=== PATIENT | male | born 1975 | race Caucasian/White ===

== ENCOUNTER 2023-12-27 09:37 | Emergency (ER) | payer OTHER, SELFPAY ==
[2023-12-27 09:41] VITALS: BP 132/98; PULSE 84; RESP 16; TEMP 36.7; O2SAT 99; BMI 35.8
--- NOTE | 2023-12-27 10:04 | CRLHL7_ITS ---
For Patients: As a result of the Century Cures Act, medical imaging exams and procedure reports are released immediately into your electronic medical record. You may view this report before your referring provider. If you have questions, please contact your health care provider. INDICATION: Right upper quadrant abdomen pain TECHNIQUE: Ultrasound abdomen limited. Sonographic images of the right upper quadrant were obtained using lobo-scale and color Doppler images. COMPARISON: None FINDINGS: Liver: Diffusely increased in echogenicity without focal lesion. Craniocaudal length of 20.2 centimeters. Gallbladder: No stones or sludge. Normal wall thickness. No pericholecystic fluid. Common bile duct: 4 mm. Pancreas: Partially obscured by bowel gas without discrete lesion. Right kidney: Normal in size. Normal echotexture and cortex. No masses, stones, or hydronephrosis. Vasculature: Proximal abdominal aorta and IVC are normal. IMPRESSION: 1. No evidence of cholelithiasis or cholecystitis. 2. Moderate to severe hepatic steatosis. Dictated by Robel Latif MD @ 12/27/2023 11:31:30 AM (Electronically Signed)
[2023-12-27 10:12] LABS: Lactate* 2.1 mmol/L (0.5-1.9)
[2023-12-27] MEDS: 0.9 % SODIUM CHLORIDE 1000 ml 1,000 ML IV (10:14)
[2023-12-27] MEDS: ONDANSETRON 2 MG/ML inj 4 MG IVP (10:14)
[2023-12-27 10:15] LABS: Basophils Absolute Auto 0.03 K/uL (0.00-0.30); Basophils Percent Auto 0.4 % (0.0-3.0); Eosinophils Absolute Auto 0.05 K/uL (0.00-0.50); Eosinophils Percent Auto 0.6 % (0.0-7.0); Hematocrit 48.2 % (37.0-53.0); Hemoglobin* 16.5 gm/dL (13.5-17.5); Immature Granulocytes Abs Auto 0.01 K/uL (0.00-0.30); Immature Granulocytes Pct Auto 0.1 %; Lymphocytes Absolute Auto 1.85 K/uL (0.90-2.90); Lymphocytes Percent Auto 22.8 % (20-44); Mean Corpuscular HGB Conc 34 gm/dL (32-36); Mean Corpuscular Hemoglobin 29 pg (26-34); Mean Corpuscular Volume 85 fL (80-100); Neutrophils Absolute Auto 5.77 K/uL (1.7-7.0); Neutrophils Percent Auto 71.1 % (42.0-72.0); Platelet Count* 272 K/uL (140-440); RDW Coefficient of Variation % 12.1 % (11.5-15.5); Red Blood Count 5.66 m/uL (4.30-5.90); White Blood Count* 8.12 K/uL (4.50-11.00)
[2023-12-27 10:19] LABS: Slide Review Reflex No
--- NOTE | 2023-12-27 10:20 | ED_ITS ---
HPI - General Adult General Chief complaint: Abdominal Pain Stated complaint: back & abdominal pain, vomiting Time Seen by Provider: 12/27/23 09:38 Source: patient Mode of arrival: ambulatory Limitations: no limitations History of Present Illness HPI narrative: 48-year-old male presenting today with back and abdominal pain. Patient states that the back pain started about 4 days ago located in the right mid back. He states that when he gets really bad he starts dry heaving and then he feels the pain in the right upper quadrant. He states that eating makes the pain worse, he states that he will eat and then a short time later the pain starts again. Certain positions can make the pain better. He denies any fevers or chills. He does feel nauseated and again does vomit when the pain becomes terrible. He denies any lower abdominal discomfort. He denies any increased urinary frequency, urgency or dysuria. He denies any blood in his urine or stools. He denies any constipation or diarrhea. No blood in his vomitus. Patient denies any intra-abdominal surgery in the past. He is on hydrochlorothiazide for hypertension. Patient states he has had similar back pain in the past, about 2 years ago he was told he had a muscle spasm and was given Flexeril. He has been taking his old Flexeril with this round of discomfort and has not been helping. The pain does not radiate into the lower abdomen or into his groin. Related Data Home Medications ?Medication ?Instructions ?Recorded ?Confirmed cyclobenzaprine 10 mg tablet 10 mg PO HS 12/27/23 12/27/23 hydrochlorothiazide 12.5 mg tablet 12.5 mg PO DAILY 12/27/23 12/27/23 Previous Rx's ?Medication ?Instructions ?Recorded ketorolac 10 mg tablet 10 mg PO TID 5 days #15 tabs 12/27/23 Allergies Allergy/AdvReac Type Severity Reaction Status Date / Time No Known Drug Allergies Allergy Verified 12/27/23 09:49 Review of Systems Status of ROS: Reports: 10 or more systems reviewed and unremarkable except as noted in History and below Exam Narrative: Exam Narrative: Overweight well-developed patient in mild distress. Alert and oriented. Answers questions appropriately. Mood and affect are appropriate. Thoughts are goal oriented and rational. No tangential or magical thinking noted. Patient speaks in full sentences without needing to catch his breath. He does not appear ill or toxic. HEENT: Normocephalic atraumatic. Pupils are equally round reactive to light. Extraocular muscles are intact. Conjunctivae are moist without any icterus noted. Moist mucous membranes. Posterior pharynx is normal. Neck is soft without any lymphadenopathy or thyromegaly. No masses are appreciated. Cardiovascular: Heart is regular rate and rhythm S1 and S2 are present without any murmurs. Lungs: Clear to auscultation bilaterally no wheezes rhonchi or rales are appreciated. Patient takes deep breaths without any discomfort. Abdomen: Soft and nontender nondistended with normal bowel sounds. No guarding or rebound. No masses or organomegaly appreciated. Negative Ashley sign. Does not have CVA tenderness on either the left or the right. Very mild epigastric discomfort. Extremities: Bilateral lower extremities are without edema. Normal DP and PT pulses. Skin: Well perfused without any obvious rashes. Const: Vital Signs, click to edit/add: Vital Signs - 24 hr 12/27/23 09:41 Temperature 98.0 F Pulse Rate [Pulse Oximeter] 84 Respiratory Rate 16 Blood Pressure [Le ft Upper Arm] 132/98 H Pulse Oximetry 99 Oxygen Delivery Me thod Room Air Course Course ED Course: Differential diagnosis at this times includes cholelithiasis, pancreatitis, muscle spasm, nephrolithiasis, peptic ulcer disease. Labs were reassuring. Lactate was slightly elevated 2.1. Normal CBC, normal lipase, normal CRP, unremarkable LFTs, normal chemistries. Right upper quadrant ultrasound was done, this does not show any pathology, no cholelithiasis or cholecystitis. Abdominal CT without contrast was done to look for nephrolithiasis-abdominal CT was entirely normal. Patient did receive a L of normal saline while he was here. Zofran. Vital Signs Vital signs: Initial Vital Signs Temperature 98.0 F 12/27/23 09:41 Temperature Source Temporal Artery Scan 12/27/23 09:41 Pulse Rate 84 12/27/23 09:41 Respiratory Rate 16 12/27/23 09:41 Blood Pressure 132/98 H 12/27/23 09:41 Blood Pressure Mean 109 H 12/27/23 09:41 Blood Pressure Position Sitting 12/27/23 09:41 Pulse Oximetry 99 12/27/23 09:41 Oxygen Delivery Method Room Air 12/27/23 09:41 Vital Signs Temperature 98.0 F 12/27/23 09:41 Pulse Rate 84 12/27/23 09:41 Respiratory Rate 16 12/27/23 09:41 Blood Pressure 132/98 H 12/27/23 09:41 Pulse Oximetry 99 12/27/23 09:41 Oxygen Delivery Method Room Air 12/27/23 09:41 Temperature 98.0 F 12/27/23 09:41 Pulse Rate 84 12/27/23 09:41 Respiratory Rate 16 12/27/23 09:41 Blood Pressure 132/98 H 12/27/23 09:41 Pulse Oximetry 99 12/27/23 09:41 Oxygen Delivery Method Room Air 12/27/23 09:41 Medications Administered Medications: Discontinued Medications Generic Name Dose Route Start Last Admin Trade Name Freq PRN Reason Stop Dose Admin Sodium Chloride 1,000 mls @ 1,000 mls/hr 12/27/23 10:15 12/27/23 10:14 0.9 % Sodium Chloride 1000 Ml IV 12/27/23 11:14 1,000 mls/hr .Q1H MARIELLA Administration Ondansetron HCl 4 mg 12/27/23 10:04 12/27/23 10:14 Ondansetron 2 Mg/Ml Inj IVP 12/27/23 10:05 4 mg ONCE ONE Administration Medical Decision Making MDM Narrative Medical decision making narrative: 48-year-old male with back pain that sometimes radiates to the front of the abdomen. His workup was entirely unremarkable. This does likely represent muscle spasm or perhaps gastritis or peptic ulcer disease. He can certainly start taking a daily omeprazole. We will send him home with Toradol to take for his back pain. He does not want Flexeril it makes him too sleepy. Recommend he follow up with primary care provider as needed. Recommend physical therapy. Lab Data Lab results reviewed: Yes I reviewed the patient's lab results Labs: Lab Results 12/27/23 12/27/23 Range/Units 09:49 11:00 WBC 8.12 (4.50-11.00) K/uL RBC 5.66 (4.30-5.90) m/uL Hgb 16.5 (13.5-17.5) gm/dL Hct 48.2 (37.0-53.0) % MCV 85 (80-100) fL MCH 29 (26-34) pg MCHC 34 (32-36) gm/dL RDW Coeff of Too 12.1 (11.5-15.5) % Plt Count 272 (140-440) K/uL Neut % (Auto) 71.1 (42.0-72.0) % Lymph % (Auto) 22.8 (20-44) % [place] % (Auto) 5.0 (0.0-11.0) % Eos % (Auto) 0.6 (0.0-7.0) % Baso % (Auto) 0.4 (0.0-3.0) % Neut # (Auto) 5.77 (1.7-7.0) K/uL Lymph # (Auto) 1.85 (0.90-2.90) K/uL [place] # (Auto) 0.40 (0.00-0.90) K/UL Eos # (Auto) 0.05 (0.00-0.50) K/uL Baso # (Auto) 0.03 (0.00-0.30) K/uL Abs Immat Gran (auto) 0.01 (0.00-0.30) K/uL Imm/Tot Granulo (auto) 0.1 % Sodium 137 (135-149) mmol/L Potassium 4.1 (3.6-5.1) mmol/L Chloride 98 (96-114) mmol/L Carbon Dioxide 28 (20-32) mmol/L Anion Gap 11 (7-15) mEq/L BUN 15 (5-24) mg/dL Creatinine 1.3 (0.5-1.5) mg/dL Estimated Creat Clear 77.93 Estimated GFR 69 ml/min Glucose 110 (60-115) mg/dL Lactate 2.1 H (0.5-1.9) mmol/L Calcium 9.6 (8.4-10.6) mg/dL Total Bilirubin 1.1 (0.1-1.5) mg/dL Direct Bilirubin 0.4 (0.0-0.5) mg/dL AST 32 (12-35) U/L ALT 52 H (4-50) U/L Alkaline Phosphatase 58 (40-150) U/L C-Reactive Protein < 0.5 L (0.5-1.0) mg/dL Total Protein 8.2 (6.0-8.3) g/dL Albumin 5.3 H (3.3-5.0) g/dL Lipase 139 (23-300) U/L Urine Color Yellow (Yellow) Urine Appearance Clear (Clear) Urine pH 7.0 (5.0-8.5) Ur Specific [place] 1.015 (1.000-1.030) Urine Protein Negative (Negative) Urine Glucose (UA) Negative (Negative) Urine Ketones Negative (Negative) Urine Blood Negative (Negative) Urine Nitrite Negative (Negative) Urine Bilirubin Negative (Negative) Urine Urobilinogen 0.2 (0.2-1.0) Ur Leukocyte Esterase Negative (Negative) Urine RBC 0-2 (0-2) Urine WBC 0-2 (0-5) Ur Squamous Epith Cells Few (None-Few) Urine Bacteria None (None) Imaging Data CT scan - abdomen: Attestation: I have reviewed the pertinent imaging results. Radiologist's impression: Study:?CT-Abdomen/Pelvis WITHOUT-12/27/2023 12:04:30 PM Ordering Physician:July Montgomery Final Report: INDICATION: Right flank pain. TECHNIQUE: CT abdomen and pelvis without contrast. COMPARISON: None. FINDINGS: Lower chest: Scattered atelectasis. Liver: Hepatic steatosis. No suspicious masses. Gallbladder and bile ducts: No stones or inflammation. No biliary dilatation. Pancreas: Unremarkable. No mass or inflammation. Spleen: Normal in size. No masses. Adrenal glands: Normal in size. No nodules. Kidneys: Normal in size. No suspicious masses, stones, or hydronephrosis. GI tract: Unremarkable. Normal in caliber. No sign of mass or inflammation. Normal appendix. Vasculature: Abdominal aorta is normal in caliber. Lymph nodes: No lymphadenopathy. Peritoneum/Abdominal Wall: Unremarkable. No sign of mass or infiltration. No free air or significant free fluid. Pelvis: Unremarkable. No pelvic masses. Bones: Unremarkable for age. IMPRESSION: No acute intra-abdominal/pelvic abnormality including obstructive uropathy. Hepatic steatosis. US - abdomen: Attestation: I have reviewed the pertinent imaging results. Radiologist's impression: Study:?US-Abdomen ABD LIMITED RUQ-12/27/2023 11:02:51 AM Ordering Physician:July Montgomery Final Report: INDICATION: Right upper quadrant abdomen pain TECHNIQUE: Ultrasound abdomen limited. Sonographic images of the right upper quadrant were obtained using lobo-scale and color Doppler images. COMPARISON: None FINDINGS: Liver: Diffusely increased in echogenicity without focal lesion. Craniocaudal length of 20.2 centimeters. Gallbladder: No stones or sludge. Normal wall thickness. No pericholecystic fluid. Common bile duct: 4 mm. Pancreas: Partially obscured by bowel gas without discrete lesion. Right kidney: Normal in size. Normal echotexture and cortex. No masses, stones, or hydronephrosis. Vasculature: Proximal abdominal aorta and IVC are normal. IMPRESSION: 1. No evidence of cholelithiasis or cholecystitis. 2. Moderate to severe hepatic steatosis. Discharge Plan Discharge Clinical Impression: Back pain, Abdominal pain Patient Disposition: Home, Self-Care Condition: Stable Additional Instructions: For your back pain take the prescribed pain medication as needed, take with food. I do recommend you follow-up with your primary care provider to discuss physical therapy as this back pain can reoccur. As far as your abdominal discomfort that gets worse with eating, you can have a small ulcer in the stomach or an inflammation of the stomach lining. Recommend he start daily omeprazole, you can purchase this [id number] and take that for 4-6 weeks. If this does not resolve your issues, you may need something called a HIDA scan which is a test that tests how well your gallbladder is working. This is also something you can discuss with your primary care provider. Prescriptions: New ketorolac 10 mg tablet 10 mg PO TID 5 Days Qty: 15 0RF No Action hydrochlorothiazide 12.5 mg tablet 12.5 mg PO DAILY cyclobenzaprine 10 mg tablet 10 mg PO HS Follow Up/Referrals: Vincent Leonardo PA-C [Primary Care Provider] - Stand Alone Forms: [facility] [employer] Info Instructions
[2023-12-27 10:30] LABS: Albumin* 5.3 g/dL (3.3-5.0)
[2023-12-27 10:33] LABS: Alkaline Phosphatase* 58 U/L (40-150); Aspartate Amino Transferase* 32 U/L (12-35); Bilirubin Direct* 0.4 mg/dL (0.0-0.5); Bilirubin Total* 1.1 mg/dL (0.1-1.5); Lipase* 139 U/L (23-300); Total Protein* 8.2 g/dL (6.0-8.3)
[2023-12-27 10:34] LABS: Alanine Aminotransferase* 52 U/L (4-50)
[2023-12-27 10:36] LABS: C Reactive Protein* < 0.5 mg/dL (0.5-1.0)
[2023-12-27 10:55] LABS: Chloride* 98 mmol/L (96-114); Potassium* 4.1 mmol/L (3.6-5.1); Sodium* 137 mmol/L (135-149)
[2023-12-27 10:58] LABS: Anion Gap 11 mEq/L (7-15); Blood Urea Nitrogen* 15 mg/dL (5-24); Carbon Dioxide* 28 mmol/L (20-32); Creatinine* 1.3 mg/dL (0.5-1.5); Est. Creatinine Clearance* 77.93; Estimated Glomerular Filt Rate 69 ml/min
[2023-12-27 10:59] LABS: Calcium* 9.6 mg/dL (8.4-10.6); Glucose* 110 mg/dL (60-115)
[2023-12-27 11:15] LABS: Appearance Urine Clear (Clear); Bilirubin Urine Negative (Negative); Blood Urine Negative (Negative); Color Urine Yellow (Yellow); Glucose Urine Negative (Negative); Ketones Urine Negative (Negative); Leukocyte Esterase Urine Negative (Negative); Nitrite Urine Negative (Negative); Protein Urine Negative (Negative); Specific Gravity Urine 1.015 (1.000-1.030); Urobilinogen Urine 0.2 (0.2-1.0)
[2023-12-27 11:19] LABS: RBC Urine 0-2 (0-2); Squamous Epithelial Cell Urine Few (None-Few); WBC Urine 0-2 (0-5)
--- NOTE | 2023-12-27 11:38 | CRLHL7_ITS ---
For Patients: As a result of the Century Cures Act, medical imaging exams and procedure reports are released immediately into your electronic medical record. You may view this report before your referring provider. If you have questions, please contact your health care provider. INDICATION: Right flank pain. TECHNIQUE: CT abdomen and pelvis without contrast. COMPARISON: None. FINDINGS: Lower chest: Scattered atelectasis. Liver: Hepatic steatosis. No suspicious masses. Gallbladder and bile ducts: No stones or inflammation. No biliary dilatation. Pancreas: Unremarkable. No mass or inflammation. Spleen: Normal in size. No masses. Adrenal glands: Normal in size. No nodules. Kidneys: Normal in size. No suspicious masses, stones, or hydronephrosis. GI tract: Unremarkable. Normal in caliber. No sign of mass or inflammation. Normal appendix. Vasculature: Abdominal aorta is normal in caliber. Lymph nodes: No lymphadenopathy. Peritoneum/Abdominal Wall: Unremarkable. No sign of mass or infiltration. No free air or significant free fluid. Pelvis: Unremarkable. No pelvic masses. Bones: Unremarkable for age. IMPRESSION: No acute intra-abdominal/pelvic abnormality including obstructive uropathy. Hepatic steatosis. Please note that all CT scans at this facility use dose modulation, iterative reconstruction, and/or weight-based dosing when appropriate to reduce radiation dose to as low as reasonably achievable. Dictated by Ziyad Grace MD @ 12/27/2023 12:30:37 PM (Electronically Signed)
== END 2023-12-27 13:16 | disposition home or self-care (01) ==
PROVIDERS: Emergency Provider Family Medicine; PCP Physician Assistant Medical
DX: M54.9 Dorsalgia, unspecified (principal); R10.9 Unspecified abdominal pain
CPT/HCPCS: 36415; 74176; 76705; 80048; 80076; 81001; 83605; 83690; 85025; 86140; 87086; 96374; 99284; J2405; J7030